=== PATIENT | male | born 1935 | race African-American/Black ===

== ENCOUNTER 2018-10-01 09:08 | Day surgery (SDC) | payer OTHER ==
[2018-09-27 12:22] VITALS: BMI 27.7
[2018-10-01] MEDS ORDERED: PROPOFOL 20 ML ONE ×2 (11:16)
[2018-10-01 12:07] VITALS: TEMP 97.9
[2018-10-01 12:40] VITALS: BP 138/72; PULSE 67
--- NOTE | 2018-10-03 09:35 | PATH ---
Surgical Pathology Report Patient Name: CARMENCITA HALL [facility] Rec. #: [id number] /Age/Gender: 1935 (Age: 82) / M Account: [id number] Location: [facility] Taken: 10/01/2018 Received: 10/01/2018 Reported: 10/03/2018 Physicians: Daniel Feldman M.D. Specimen(s) Received BX POLYP SIGMOID COLON Clinical History History of polyps Postoperative diagnosis: Polyp Final Diagnosis COLON, SIGMOID, BIOPSY: TUBULAR ADENOMA. Electronically Signed Trey Parra M.D. Gross Description Received in formalin, labeled "biopsy polyp sigmoid" is a owen, irregular portion of soft tissue measuring 0.4 cm. in greatest dimension. The specimen is submitted in toto in one cassette. 10/02/201810/02/2018
== END 2018-10-01 12:40 | disposition home or self-care (01) ==
LOC: FASU-ENDO 09:08
PROVIDERS: ATTEND Internal Medicine Gastroenterology
PROC: 0DBN8ZX Excision of Sigmoid Colon, Via Natural or Artificial Opening Endoscopic, Diagnostic (ICD-10-PCS; principal; 2018-10-01 11:15)
DX: Z12.11 Encounter for screening for malignant neoplasm of colon (principal); D12.5 Benign neoplasm of sigmoid colon; K57.30 Diverticulosis of large intestine without perforation or abscess without bleeding
CPT/HCPCS: 82962; 88305-TC